=== PATIENT | female | born 1940 | race Caucasian/White ===

== ENCOUNTER 2018-01-30 12:14 | Emergency (ER) | payer MEDICARE, MEDICAID ==
[~2018-01-30] VITALS: Ht 160 cm; Wt 74.0 kg
[~2018-01-30 12:14] MED LIST: ALBUTERO1 IN; ALBUTEROL S2.5 MG/.5 IN; ALPRAZOLAM0.5 MG PO; ALPRAZOLAM1 M1 PO; AMLODIPINE5 MG OR; AUGMENTIN875TAB PO; CALCI17 PO; CARDIZEM CD 180 PO; CEFUROXIME500 MG PO; CHERATUSSIN PO; CIPROFLOXACN500 MG PO; DIABETIC; DIOVAN40 MG PO; ELIQUIS5 MG PO; FLECAINIDE50 MG PO; FLUARIX QUADRIV1 INJ IM; LEVOTHYROXIN50 MC1 PO; LEVOTHYROXIN50 MCG PO; LOPRESSOR25 MG PO; LOPRESSOR50 MG PO; MECLIZINE12.5 MG PO; MELATONIN5 MG PO; METAMUCIL28 % OR; METFORMIN500 M2 PO; NAPROSYN500 MG PO; NEXIUM40 M1 PO; NEXIUM40 MG PO; NIACIN OR; NO HOME MEDS; OMEPRAZOLE40 MG OR; PHENERGAN SUP12.5 MG RE; PNEUMOVAX 23 IM; PRADAXA150 MG PO; PRADAXA75 MG PO; PREDNISONE10 MG PO; PREDNISONE20 MG PO; PREDNISONE50 MG OR; QVAR80 MCG IN; RANITIDINE150 M1 PO; ROBITUSSIN AC10 ML PO; SINGULAIR 10 MG10 MG PO; SUCRALFATE1 GM PO; SYMBICORT1 AE1 IN; SYNTHROID OR; SYNTHROID50 MCG PO; TESSALON PER100 MG PO; TRAMADOL HCL50 MG PO; VITAMINS; XANAX0.25 MG PO; XANAX0.5 MG OR; XANAX0.5 MG PO; XANAX1 MG PO
[2018-01-30 13:56] VITALS: BP 116/60
== END 2018-01-30 14:00 | disposition home or self-care (01) ==
LOC: ED 12:14
PROC: 2W3JX1Z Immobilization of Right Finger using Splint (ICD-10-PCS; principal; 2018-01-30)
DX: S60.031A Contusion of right middle finger without damage to nail, initial encounter (principal); M19.041 Primary osteoarthritis, right hand; I48.91 Unspecified atrial fibrillation; I10 Essential (primary) hypertension; W23.0XXA Caught, crushed, jammed, or pinched between moving objects, initial encounter; Y93.89 Activity, other specified; Y92.009 Unspecified place in unspecified non-institutional (private) residence as the place of occurrence of the external cause; Z89.021 Acquired absence of right finger(s)

== ENCOUNTER 2020-08-02 08:09 | Emergency (ER) | payer MEDICARE, MEDICAID ==
[~2020-08-02] VITALS: Ht 157.5 cm; Wt 67.7 kg
[2020-08-02 09:41] VITALS: BP 157/76
== END 2020-08-02 09:41 | disposition home or self-care (01) ==
LOC: ED 08:09
DX: M25.531 Pain in right wrist (principal); I48.91 Unspecified atrial fibrillation; I10 Essential (primary) hypertension; X50.0XXA Overexertion from strenuous movement or load, initial encounter; Y92.009 Unspecified place in unspecified non-institutional (private) residence as the place of occurrence of the external cause

== ENCOUNTER 2024-04-11 01:28 | Emergency (ER) | payer MEDICARE, MEDICAID ==
[~2024-04-11] VITALS: Ht 154.9 cm; Wt 68.0 kg
[2024-04-11] VITALS (15 sets, daily range): BP systolic 107–183; BP diastolic 50–136
[2024-04-11] MEDS ORDERED: PIPERACILLIN Sodium-Tazobactam 4.5 GM in SODIUM CHLORIDE 0.9% 100 ML IV ONE (02:05)
[2024-04-11] MEDS ORDERED: DEXAMETHASONE SOD. PHOSPHATE 10 MG/ML VIAL IV ONE (02:05)
[2024-04-11] MEDS ORDERED: ETOMIDATE 20 MG/10 ML SDV IV ONE (02:07)
[2024-04-11] MEDS ORDERED: SUCCINYLCHOLINE CHLORIDE 20 MG/ML 10ML VIAL IV ONE (02:07)
[2024-04-11] MEDS ORDERED: ROCURONIUM BROMIDE 10 MG/ML 5ML VIAL IV ONE (02:07)
[2024-04-11] MEDS ORDERED: NIACIN500 M6 PO (02:09)
[2024-04-11] MEDS ORDERED: DEXILANT60 MG PO (02:10)
[2024-04-11] MEDS ORDERED: MINERALS (02:11)
[2024-04-11] MEDS ORDERED: VITAMINS (02:11)
[2024-04-11] MEDS ORDERED: PROPOFOL 100 ML IV ONE ×3 (02:30→07:29)
[2024-04-11] MEDS ORDERED: MIDAZOLAM HCL 2 MG/2 ML VIAL IV ONE (02:30)
[2024-04-11 02:41] LABS: BASO% 0.3 % (0-3); EOS% 1.4 % (0-8); HEMATOCRIT 40.7 % (37.0-47.0); HEMOGLOBIN 13.6 g/dl (12.0-16.0); IMMATURE GRANULOCYTES 0.1 % (0.0-5.0); LYMPH% 20.4 % (15-41); MEAN CELL VOLUME 90.4 fL CALC (80.0-100.0); MEAN CORPUSCULAR HGB 30.2 pG CALC (26.0-32.0); MEAN CORPUSCULAR HGB CONC 33.4 g/dL CAL (32.0-36.0); MONO% 8.6 % (2-13); NEUT# 5.04 thou/uL (2.00-7.15); NEUT% 69.2 % (42-76); RED BLOOD COUNT 4.5 mill/uL (4.20-5.60); RED CELL DISTRI WIDTH 14.4 % (11.5-15.5)
[2024-04-11 02:58] LABS: CREATININE 0.8 mg/dL (0.5-1.0); POTASSIUM 3.9 mmol/l (3.5-5.1); TOTAL PROTEIN 8.2 g/dL (6.3-8.2)
[2024-04-11 03:05] LABS: BILIRUBIN, TOTAL 0.9 mg/dL (0.02-1.3)
[2024-04-11 03:22] LABS: URINE BILIRUBIN - DIPSTICK Negative (NEGATIVE); URINE BLOOD DIPSTICK Negative (NEGATIVE); URINE COLOR Yellow; URINE GLUCOSE - DIPSTICK Negative (NEGATIVE); URINE KETONE Negative (NEGATIVE); URINE LEUK ESTERASE Negative (NEGATIVE); URINE NITRITE - DIPSTICK Negative (Negative); URINE PROTEIN - DIPSTICK 30 mg/dL (NEG-TRACE); URINE UROBILINOGEN - DIPSTICK 0.2 E.U./dL (0.2)
[2024-04-11 03:27] LABS: URINE RBC 0-2 RBC/hpf (0-5); URINE SQUAMOUS EPITHELIAL CELL FEW EPI/hpf (0-FEW)
== END 2024-04-11 07:47 | disposition short-term general hospital (02) ==
LOC: ED 01:28
PROVIDERS: Emergency Medicine
PROC: 0BH17EZ Insertion of Endotracheal Airway into Trachea, Via Natural or Artificial Opening (ICD-10-PCS; principal; 2024-04-11)
PROC: 5A1935Z Respiratory Ventilation, Less than 24 Consecutive Hours (ICD-10-PCS; 2024-04-11)
PROC: 0T9B70Z Drainage of Bladder with Drainage Device, Via Natural or Artificial Opening (ICD-10-PCS; 2024-04-11)
DX: T85.79XA Infection and inflammatory reaction due to other internal prosthetic devices, implants and grafts, initial encounter (principal); K12.2 Cellulitis and abscess of mouth; I10 Essential (primary) hypertension; I48.91 Unspecified atrial fibrillation; E78.5 Hyperlipidemia, unspecified; Y83.8 Other surgical procedures as the cause of abnormal reaction of the patient, or of later complication, without mention of misadventure at the time of the procedure; Z79.01 Long term (current) use of anticoagulants; Z96.5 Presence of tooth-root and mandibular implants
CPT/HCPCS: Q9967